=== PATIENT | female | born 1955 | race Caucasian/White ===

== ENCOUNTER 2018-11-15 08:17 | Emergency (ER) | payer BC ==
[2018-11-15 08:30] VITALS: BP 117/58
--- NOTE | 2018-11-15 08:54 | ED ---
Allergic Reaction/Systemic - HPI Summary HPI Summary: 62 yo WF p/w B/L hand and feet pruritis associated with dizziness after taking diclofenac from 05/2016. Pt took her other usual meds-Acyclovir, Ca2+ and last night before bedtime and when she awoke this AM, pt felt these sx. Denies CP, SOB, tongue or lip swelling, NOT taking any other meds, supplements, foods. Denies urinary sx. - History of Current Complaint Chief Complaint: UCDizziness Hx Obtained From: Patient Onset/Duration: Gradual Onset Timing: Constant Severity Initially: Moderate Severity Currently: Moderate Pain Intensity: 0 - Allergies/Home Medications Allergies/Adverse Reactions: Allergies Allergy/AdvReac Type Severity Reaction Status Date / Time clarithromycin [From Biaxin] Allergy Unknown Verified 11/15/18 08:31 Reaction Details Sulfa (Sulfonamide Allergy Unknown Verified 11/15/18 08:31 Antibiotics) Reaction Details Home Medications: Home Medications Acyclovir [Zovirax] 400 mg PO DAILY 11/15/18 [History Confirmed 11/15/18] Aspirin 650 mg PO ONCE PRN 11/15/18 [History Confirmed 11/15/18] Calcium Carbonate [Calcium] 500 mg PO DAILY 11/15/18 [History Confirmed 11/15/18 ] Diclofenac Sodium 75 mg PO ONCE PRN 11/15/18 [History Confirmed 11/15/18] Fexofenadine HCl 180 mg PO DAILY PRN 11/15/18 [History Confirmed 11/15/18] PMH/Surg Hx/FS Hx/Imm Hx Previously Healthy: Yes - Cancer History Hx Chemotherapy: No Hx Radiation Therapy: No - Surgical History Surgery Procedure, Year, and Place: T&A. . ACL replaced in left knee, Infectious Disease History: Yes Infectious Disease History: Reports: History Other Infectious Disease - herpes Denies: Traveled Outside the [place] in Last 30 Days - Social History Alcohol Use: Daily Substance Use Type: Reports: None Smoking Status (MU): Former Smoker Review of Systems Constitutional: Negative Eyes: Negative ENT: Negative Cardiovascular: Negative Respiratory: Negative Gastrointestinal: Negative Genitourinary: Negative Musculoskeletal: Negative Positive: Other - itcy hands and feet Neurological: Negative All Other Systems Reviewed And Are Negative: Yes Physical Exam - Summary Physical Exam Summary: Vital Signs Reviewed: Yes Skin: Positive: Warm Head/Face: Positive: Normal Head/Face Inspection Eyes: Positive: Normal ENT: Positive: Normal ENT inspection Neck: Positive: Supple Respiratory/Lung Sounds: Positive: Clear to Auscultation Cardiovascular: Positive: Normal, RRR, S1, S2 Abdomen Description: Positive: Nontender Musculoskeletal: Positive: Normal Neurological: Positive: Normal Psychiatric: Positive: Normal, Affect/Mood Appropriate Vital Signs On Initial Exam: Initial Vitals Temp Pulse Resp BP Pulse Ox 36.2 C 56 18 117/58 95 11/15/18 08:22 11/15/18 08:22 11/15/18 08:22 11/15/18 08:22 11/15/18 08:22 Diagnostics - Vital Signs Vital Signs Temp Pulse Resp BP Pulse Ox 11/15/18 08:22 36.2 C 56 18 117/58 95 - Laboratory Lab Statement: Any lab studies that have been ordered have been reviewed, and results considered in the medical decision making process. Allergic Reaction Course/Dx - Course Course Of Treatment: Pruritic hands and feet with dizziness - EKG neg, with all other extraneous acute possible etiologies being NEG, current sx can be a S/E of taking old diclofenac. Advised to d/c the medication. and drink plenty of fluids, f/u with PCP or go to ER if sx persist. - Diagnoses Provider Diagnoses: Allergic reaction caused by a drug Discharge - Sign-Out/Discharge Documenting (check all that apply): Patient Departure All imaging exams completed and their final reports reviewed: Yes - Discharge Plan Condition: Stable Disposition: HOME Patient Education Materials: General Allergic Reaction (ED) Referrals: Tanmay Sapp MD [Primary Care Provider] - Additional Instructions: GO TO ER IF SYMPTOMS PERSIST - Billing Disposition and Condition Condition: STABLE Disposition: Home
== END 2018-11-15 09:11 | disposition home or self-care (01) ==
LOC: UCEAST 08:17
DX: L29.9 Pruritus, unspecified (principal); T39.395A Adverse effect of other nonsteroidal anti-inflammatory drugs [NSAID], initial encounter; Y92.009 Unspecified place in unspecified non-institutional (private) residence as the place of occurrence of the external cause; Z79.82 Long term (current) use of aspirin; Z79.899 Other long term (current) drug therapy; Z87.891 Personal history of nicotine dependence
CPT/HCPCS: 99211; G0463